=== PATIENT | female | born 1990 | race Hispanic/Latino ===

== ENCOUNTER 2016-04-14 17:34 | Emergency (ER) | payer OTHER ==
[~2016-04-14] VITALS: Ht 167.6 cm; Wt 72.6 kg
[2016-04-14 17:44] VITALS: BP 123/80
--- NOTE | 2016-04-14 18:19 | ED INFLUENZA/URI COMPLAINT ---
History of Present Illness General Chief Complaint: Upper Respiratory Sx/Fever Stated Complaint: FLU LIKE S/S Source: patient, family, old records Exam Limitations: no limitations Vital Signs & Intake/Output Vital Signs & Intake/Output Vital Signs Date Time Temp Pulse Resp B/P Pulse O2 O2 Flow FiO2 Ox Delivery Rate 04/14 1836 101.2 04/14 1744 101.2 111 18 123/80 99 Allergies Coded Allergies: No Known Allergies (04/14/16) Reconcile Medications Amoxicillin/Potassium Clav (Augmentin 875-125 Tablet) 875 MG-125 MG TABLET 1 TAB PO BID strep pharyngitis Triage Note: PT TO TRAIGE WITH C/O FEVER,CONGESTION, BODYACHES DRY COUGH SINCE YESTERDAY. TEMP 101.2 IN TRIAGE. STREP SWABS AND FLU SWAB OBTAINED IN TRIAGE AND SENT TO LAB. Triage Nurses Notes Reviewed? yes Onset: Abrupt Duration: day(s): (1), constant Timing: recent history Severity: moderate Severity Numbers: 5 No Modifying Factors: none Associated Symptoms: cough, muscle aches, nasal congestion, nasal drainage, sore throat : No Patient currently breastfeeds: No HPI: 25-year-old female with no medical history presents emergency room complaining of subjective fevers chills nasal congestion and rhinorrhea generalized bodyaches nonproductive cough and sore throat since last night. The patient's last dose oftylenol was earlier this morning she's not sought care for the symptoms until today no sick contacts. She denies any shortness of breath chest pain abdominal pain nausea vomiting or diarrhea no urinary symptoms. Past History Travel History Traveled to [place] past 21 day No Medical History Any Pertinent Medical History? none Surgical History Surgical History: none Psychosocial History What is your primary language Estonian Tobacco Use: Never used Family History Hx Contributory? No Review of Systems Review of Systems Constitutional: Reports: see HPI. All Other Systems: Reviewed and Negative Comments Review of systems: See HPI, All other systems negative. Constitutional, chills fever, no malaise HEENT: No visual changes sore throat congestion, Cardiovascular: No chest pain , no palpitation Skin, no jaundice no rashes, no change in skin Respiratory: No dyspnea cough no sputum GI: No nausea no vomiting, no diarrhea, no bloating/constipation : No dysuria Muscle skeletal: No joint pain, , no back pain, no neck pain, Neurologic: no headache Psych: No stress Heme/endocrine: No bruising no bleeding Immunology: No lymphadenopathy Physical Exam Physical Exam General Appearance: well developed/nourished, no apparent distress, alert, awake Ears, Nose, Throat: normal ENT inspection, moist mucous membrane, hearing grossly normal Comments: Well-developed well-nourished patient in no apparent distress. Head/Face: Atraumatic, no maxillary/frontal sinus tenderness, no facial swelling Eyes: PERRL, EOMI, no conjunctival injection. No nystagmus Ear:External auditory canal and Tympanic membranes clear, no erythema, no FB. Nose: atraumatic.Normal inspection: No bleeding, no septal hematoma Throat: Moist mucous membranes.pharynx is erythematous, bilateral peritonsillar exudate, no trismus no stridor/drooling or assymetry. No swelling or edema. Neck: Supple, ANTERIOR lymphadenopathy, FROM Back: FROM, Nontender Cardiovascular: Regular rate and rhythms no murmurs rubs or gallops, Respiratory: Chest nontender.There were no bony deformities, no asymmetry. No respiratory distress. Patient speaking in full complete sentences. Breath sounds clear to auscultation bilaterally: NO W/R/R Extremities: full range of motion Neuro: Alert and oriented x3 Skin: Warm & dry;No appreciable rash on exposed skin Psych: Mood affect normal, normal memory normal judgment. Core Measures Severe Sepsis Present: No Septic Shock Present: No Progress Differential Diagnosis: influenza, pneumonia, pharyngitis, bronchitis Plan of Care: Orders Procedure Date/time Status RAPID VIRAL INFLUENZA A 04/14 1747 Complete THROAT CULTURE W/QUICK STREP 04/14 1747 Complete Microbiology 04/14 1800 NASOPHARYN: Influenza Virus A & B Rapid Smear - COMP I discussed with the patient her flu swab results advised need for Tylenol Motrin every 4-6 hours, Prescription for augmentin provided cleared for discharge (MICHEAL DONOHUE) Initial ED EKG: none Departure Departure Time of Disposition: 1848 Disposition: HOME OR SELF CARE Condition: Stable Clinical Impression Primary Impression: Strep pharyngitis Referrals: PATIENT HAS NO PRIMARY CARE DR (PCP/Family) Additional Instructions: Augmentin as directed. Tylenol or Motrin every 4-6 hours. Drink plenty of fluids follow up with her primary care physician on Saturday return with any concerns Departure Forms: Customer Survey General Discharge Information Prescriptions: Current Visit Scripts Amoxicillin/Potassium Clav (Augmentin 875-125 Tablet) 1 TAB PO BID #14 TAB
[2016-04-14] MEDS ORDERED: AUGMENTIN 875-1 EACH PO (18:53)
== END 2016-04-14 19:13 ==
LOC: ERH 17:34
DX: J02.0 Streptococcal pharyngitis (principal)
CPT/HCPCS: 87804; 87804-59

== ENCOUNTER 2017-10-14 13:24 | Observation (INO) | payer OTHER ==
[~2017-10-14] VITALS: Ht 167.6 cm; Wt 87.1 kg
[~2017-10-14 13:24] MED LIST: AUGMENTIN 875-1 EACH PO; BACTRIM DS TAB1 EACH PO; PYRIDIUM200 M1 PO
[2017-10-14 16:38] LABS: ABSOLUTE BASOPHIL COUNT 0 /CUMM (0.0-0.2); ABSOLUTE EOSINOPHIL COUNT 0.1 /CUMM (0.0-0.7); ABSOLUTE GRANULOCYTE CT 11.6 /CUMM (1.4-6.5); ABSOLUTE LYMPH COUNT 1.7 /CUMM (1.2-3.4); ABSOLUTE MONOCYTE COUNT 0.8 /CUMM (0.10-0.60); BASOPHIL % 0.1 % (0.0-2.0); EOSINOPHIL % 0.6 % (0-5); GRANULOCYTE % 81.5 % (42.2-75.2); HEMATOCRIT 38.3 % (37-47); MEAN CORPUSCULAR HGB 28.3 PG (27.0-31.0); MEAN CORPUSCULAR HGB CONC 33.3 G/DL (33.0-37.0); MEAN PLATELET VOLUME 9.1 FL (7.4-10.4); PLATELET COUNT 238 /CUMM (130-400); RBC DISTRIBUTION WIDTH 15.1 % (11.5-14.5); WHITE BLOOD CELL COUNT 14.2 /CUMM (4.8-10.8)
[2017-10-14] MEDS ORDERED: PRENATAL ONE D1 EACH PO (16:51)
[2017-10-15] MEDS ORDERED: MACRODANTIN50 M1 PO (09:39)
--- NOTE | 2017-10-23 13:04 | History & Physical Pre-Op ---
General Information and HPI History of Present Illness: This patient is a 27-year-old patient at 39 weeks who presents with pyelonephritis. She was admitted for 23 hour hold in order to receive IV antibiotics. care is complete and remarkable for with bilateral clubfeet. Allergies/Medications Allergies: Coded Allergies: No Known Allergies (04/14/16) Home Med list Nitrofurantoin (Macrodantin) 50 MG CAPSULE 100 MG PO BID UTI Vit No.129/Iron/FA ( One Daily Tablet) 27 MG IRON-800 MCG TABLET 1 TAB PO DAILY (Reported) Past History Medical History Neurological: NONE EENT: NONE Cardiovascular: NONE Respiratory: NONE Gastrointestinal: NONE Hepatic: NONE Renal: NONE Musculoskeletal: NONE Psychiatric: NONE Endocrine: NONE Surgical History Pertinent Surgical History: none Past Family/Social History Psychosocial History Smoking Status: Never Smoked Review of Systems Review of Systems Constitutional: Denies: chills, fever. EENTM: Reports: no symptoms. Cardiovascular: Reports: no symptoms. Respiratory: Reports: no symptoms. GI: Reports: no symptoms. Genitourinary: Reports: no symptoms. Musculoskeletal: Reports: back pain. Skin: Reports: no symptoms. Neurological/Psychological: Reports: no symptoms. Hematologic/Endocrine: Reports: no symptoms. Immunologic/Allergic: Reports: no symptoms. All Other Systems: Reviewed and Negative Exam & Diagnostic Data Last 24 Hrs of Vital Signs/I&O Vital signs stable afebrile Physical Exam: Right flank pain heart category 1 Extremities no clubbing cyanosis or edema Assessment/Plan Assessment/Plan: Pyelonephritis at 39 weeks Plan: Intravenous fluids, ceftriaxone 1 g IV daily Discharge home on oral medications As Ranked By This Provider Problem List: 1. Pyelonephritis affecting
--- NOTE | 2017-10-23 13:06 | Surgical Discharge Summary ---
Visit Information Visit Dates Admission Date: 10/14/17 Discharge Date: 10/15/17 History of Present Illness Chief Complaint: Back pain Medical History Neurological: NONE EENT: NONE Cardiovascular: NONE Respiratory: NONE Gastrointestinal: NONE Hepatic: NONE Renal: NONE Musculoskeletal: NONE Psychiatric: NONE Endocrine: NONE Surgical History Pertinent Surgical History: none Psychosocial History What is Your Primary Language? Mongolian Review of Systems: Negative Hospital Course Course Attending Physician: Moshe Ram MD Primary Care Physician: Patient Has No Primary Care Dr Hospital Course: Patient was admitted for 23 hour hold secondary to pyelonephritis. She received IV intravenous fluids as well as IV ceftriaxone 1 g daily Allergies: Coded Allergies: No Known Allergies (04/14/16) Disposition Summary Disposition Principal Diagnosis: Pyelonephritis Additional Diagnosis: Discharge Disposition: home or self care Discharge Instructions General Discharge Information Code Status: Full Code Patient's Diet: Regular Patient's Activity: Pelvic rest Follow-Up Instructions/Appts: 1 week Medications at Discharge Discharge Medications: Stop taking the following medications: Amoxicillin/Potassium Clav (Augmentin 875-125 Tablet) 875 MG-125 MG TABLET ORAL TWICE DAILY Qty = 14 Sulfamethoxazole/Trimethoprim (Bactrim Ds Tablet) 800 MG-160 MG TABLET ORAL TWICE DAILY Qty = 10 Phenazopyridine HCl (Pyridium) 200 MG TABLET ORAL THREE TIMES DAILY Qty = 9 Continue taking these medications: Vit No.129/Iron/FA ( One Daily Tablet) 27 MG IRON-800 MCG TABLET 1 Tablet ORAL DAILY Start taking the following new medications: Nitrofurantoin (Macrodantin) 50 MG CAPSULE 100 Milligram ORAL TWICE DAILY Qty = 20 No Refills Comments: Last Taken:10/15/17 Time:1412
[2017-10-26] MEDS ORDERED: CIPRO500 M1 PO (09:07)
[2017-10-26] MEDS ORDERED: IBUPROFEN800 M1 PO (09:07)
== END 2017-10-15 15:45 ==
LOC: CBCO 13:24 → GNO 14:50
PROVIDERS: Obstetrics & Gynecology
DX: O23.03 Infections of kidney in pregnancy, third trimester (principal); Z3A.39 39 weeks gestation of pregnancy
CPT/HCPCS: GNOS; 36415; 81001; 87086; 96361; 96374; 96376; J0696; J7120